=== PATIENT | male | born 1960 | race Caucasian/White ===

== ENCOUNTER 2020-04-15 06:45 | Day surgery (SDC) | payer BC ==
[2020-04-15] MEDS ORDERED: Lidocaine 1% PF 2 ML SDV INJECT ONE (06:46)
[2020-04-15] MEDS ORDERED: Propofol 200 MG/20 ML SDV IV ONE (06:46)
[2020-04-15] MEDS ORDERED: Sodium Chloride 0.9% 10 ML Syringe FLUSH PRN (07:00)
[2020-04-15] MEDS ORDERED: Lactated Ringers 1,000 ML IV SCH (07:00)
--- NOTE | 2020-04-15 08:54 | PCM.OPNOTE ---
- General Post-Op/Procedure Note Date of Surgery/Procedure: 04/15/20 Operative Procedure(s): c scope with cold forceps biopsy Findings: ascending and sigmoid colon polyp Pre Op Diagnosis: personal hx of colon polyps Post-Op Diagnosis: ascending and sigmoid colon polyp Anesthesia Technique: MAC Primary Surgeon: Dex Galicia Anesthesia Provider: Mendoza Hayes Pathology: ascending and sigmoid colon polyp Complications: None Condition: Good Free Text/Narrative:: see dictation #[id number]
[2020-04-15 10:48] VITALS: BP 120/73; PULSE 57
--- NOTE | 2020-04-15 10:48 | OR ---
DATE OF OPERATION: 04/15/2020 SURGEON: Dex Galicia MD PROCEDURE PERFORMED: Colonoscopy with cold forceps biopsy. PREOPERATIVE DIAGNOSIS: Personal history of colon polyps. POSTOPERATIVE DIAGNOSIS: Ascending and sigmoid colon polyps. INDICATIONS FOR PROCEDURE: This is a 59-year-old white male who presents for his followup colonoscopy. Last scope was 5 years ago where he had some adenomatous polyps removed. He is without complaints. DESCRIPTION OF OPERATION: After an excellent IV sedation was administered, digital rectal exam was performed. No marked abnormality was noted. Flexible colonoscope was inserted and advanced without difficulty through the patient's cecum. Prep was excellent. After identifying the cecum by the usual anatomic markers, the scope was slowly withdrawn, and the following findings were noted. Ascending colon, in the cecum, a small 3 mm polyp, biopsied with cold biopsy forceps and sent for permanent. Transverse colon, unremarkable. Descending colon, unremarkable. Sigmoid, in the proximal sigmoid, there was a small polypoid lesion, again measuring approximately 4 mm in size, biopsied with cold biopsy forceps, and sent for permanent. Rectum and anus were unremarkable. The patient tolerated the procedure well, was taken to Recovery. Results will be sent to the patient via letter. /[id number] /MODL
== END 2020-04-15 10:18 | disposition home or self-care (01) ==
LOC: FB.SDS 06:45
PROVIDERS: ATTEND Surgery
DX: Z12.11 Encounter for screening for malignant neoplasm of colon (principal); D12.2 Benign neoplasm of ascending colon; D12.5 Benign neoplasm of sigmoid colon; Z98.890 Other specified postprocedural states
CPT/HCPCS: 00811-QZ; 88305; J2704; J7120